=== PATIENT | male | born 1985 | race Caucasian/White ===

== ENCOUNTER 2024-06-07 08:36 | Emergency (ER) | payer BC, SELFPAY ==
[2024-06-07 08:39] VITALS: BP 123/86
[2024-06-07 09:00] VITALS: BMI 23.3
--- NOTE | 2024-06-07 09:07 | EDRN ---
Dr. Zepeda in to see pt at this time.
--- NOTE | 2024-06-07 09:07 | ED.GENMED ---
History of Present Illness
General
Chief Complaint: Back Pain
Source: patient
Time Seen by Provider: 06/07/24 08:51
History of Present Illness
History of Present Illness:
39-year-old male presents to the emergency room complaining of pain in his left posterior thorax. Patient states that he was feeding his son breakfast in a bent over position. When he moved he developed a sudden sharp pain. He felt like he was
going to pass out due to the pain. The symptoms of feeling lightheaded and flushed have abated but he continues to have pain. Pain is worse with movement and somewhat worse with taking a breath. No fever or chills. No PE risk factors.
Phy Exam
Physical Exam
Physical Exam:
General: Awake, Alert, Oriented X3. No acute distress.
Vitals: unremarkable
Head: Atraumatic
Eyes: Pupils equal, EOMI
Throat: Airway intact, no exudates
Neck: Trachea midline
Lungs: Clear and equal b/l
Heart: Regular rate, no murmurs
Abd: Soft, Nontender, No pulsatile mass
Back: Left thoracic paraspinal muscular tightness
Neuro: Nonfocal
Skin: Warm, dry, no rash
Extremities: pulses equal b/l, no edema
Course
Orders/Labs/Results
Orders:
Orders
06/07/24 09:06
Ibuprofen [Motrin] 600 mg PO NOW STA
CR Chest - 2 Views Urgent
Comment:
Reason For Exam: left sided thoracic pain
06/07/24 09:28
Urinalysis Urgent
Date Specimen was Collected: 06/07/24
Time Specimen was Collected: 09:26
Abnormal Lab Results
06/07/24
09:28
Urine Ketones Trace A
(Negative)
Vital Signs
Initial and Last Documented VS:
Initial Vital Signs
Temp Pulse BP Pulse Ox
98.2 F 93 123/86 100
06/07/24 08:39 06/07/24 08:39 06/07/24 08:39 06/07/24 08:39
Last Documented Vital Signs
Temp Pulse Resp BP Pulse Ox
98.2 F 80 16 119/84 100
06/07/24 08:39 06/07/24 11:01 06/07/24 11:01 06/07/24 11:01 06/07/24 11:01
MDM/Problems Addressed
Differential Diagnosis Includes:
Muscle strain, pneumothorax, kidney stone
MDM/Problems Addressed:
Urinalysis shows no hematuria. Chest x-ray shows no acute disease. Overall presentation seems quite consistent with muscular type discomfort. Patient stable for outpatient management with NSAIDs, muscle relaxant
*Radiology
Radiology exam reviewed: radiology read reviewed
*Critical Care Note
Total Time (30-74mins, 75-104mins- exclusive of procedures): Not Applicable
ED Attending Note
-
Portions of this chart may have been created with voice recognition software.� Occasional wrong word or��sound alike� substitutions may have occurred due to the inherent limitations of voice recognition software.
Discharge Plan
Departure
Patient Disposition: Home (Routine Discharge)
Date of Disposition: 06/07/24
Time of Disposition: 10:53
Patient with high blood pressure during this ER visit?: No
Condition: Good
Discharge Problem:
Thoracic myofascial strain
Instructions: Upper Back Pain (DC)
Prescriptions:
New
metaxalone 800 mg tablet
800 mg PO TID PRN (Reason: muscle pain) Qty: 20 0RF
Referrals:
Jose Elias Heredia PA-C [Family Provider] -
Activity Restrictions/Additional Instructions:
X-rays look okay. I believe you have a thoracic muscle strain. I recommend ibuprofen 600 mg every 6 hours. Have also sent a prescription for a muscle relaxant which she can take as needed every 8 hours. It may cause drowsiness.
Interventions
Interventions:
*Risk Screen - Suicide Last Done: 06/07/24 09:00
*General Assessment Last Done: 06/07/24 08:44
*Neglect/Abuse Screening Last Done: 06/07/24 09:00
ED- Fall Risk Assessment Last Done: 06/07/24 09:00
*ED COVID-19 Vaccine History Last Done: 06/07/24 08:44
*Nursing Disposition Last Done: 06/07/24 11:01
ED-Musculoskeletal Assessment Last Done: 06/07/24 09:00
Discharge Date and Time
Discharge Date/Time: 06/07/24 11:02
Print Language: [id number]
[2024-06-07] MEDS: MOTRIN 600 MG PO (09:15)
[2024-06-07 09:46] LABS: Urine Albumin Negative (Neg - Trace); Urine Bilirubin Negative (Negative); Urine Character Clear (Clear); Urine Color Yellow; Urine Glucose Negative (Negative); Urine Ketone Trace (Negative); Urine Leukocyte Negative (Negative); Urine Nitrite Negative (Negative); Urine Occult Blood Negative (Negative); Urine Urobilinogen Negative (Neg - 1+)
[2024-06-07 10:30] VITALS: BP 132/69
[2024-06-07 11:01] VITALS: BP 119/84
== END 2024-06-07 11:02 | disposition home or self-care (01) ==
LOC: EMR 08:36
PROVIDERS: EMERGENCY PHYSICIAN Emergency Medicine; FAMILY PHYSICIAN Physician Assistant Medical
DX: S29.012A Strain of muscle and tendon of back wall of thorax, initial encounter (principal); X58.XXXA Exposure to other specified factors, initial encounter
CPT/HCPCS: 99283; 71046; 81003